=== PATIENT | male | born 1965 | race Caucasian/White ===

== ENCOUNTER 2017-02-11 15:24 | Inpatient (IN) ==
[2017-02-11] MEDS ORDERED: *HR* LORazepam Oral Conc 2 MG/ML PO PRN (15:29)
[2017-02-11] MEDS ORDERED: Haloperidol Oral Conc 10 MG/5 ML UDC PO PRN (15:29)
[2017-02-11] MEDS ORDERED: *HR* FentaNYL PATCH 12 MCG PATCH TD SCH (15:30)
[2017-02-11] MEDS ORDERED: 0.9 % Sodium Chloride 1,000 ML IVC ONE (15:37)
[2017-02-11] MEDS ORDERED: *HR* LORazepam 2 MG/ML VIAL IVP PRN (15:41)
[2017-02-11] MEDS ORDERED: *HR* Morphine 2 MG/ML SYRINGE IVP PRN (15:44)
[2017-02-11] MEDS ORDERED: Morphine Oral CONC 5 MG/0.25 ML ORAL.SYG PO PRN (15:45)
[2017-02-11] MEDS ORDERED: Ondansetron 4 MG/2 ML VIAL IVP PRN (15:54)
--- NOTE | 2017-02-11 16:16 | Pallative History & Physical ---
Date of Encounter: 02/11/17 Time of Encounter: 17:01 Assessment and Plan (1) Abdominal pain Current visit: No Status: Acute We will start IV medications using morphine every hour as needed threshold for switching either to allotted or increasing the dose. IV drip may be also necessary. SPECT anxiety to be some aspect of this as well. Ativan is written for. Of note the patient is not showing any signs of impaction. Rectal exam does not reveal any stool in the vault. Qualifiers: Abdominal location: generalized Qualified Code(s): R10.84 - Generalized abdominal pain (2) Goals of care, counseling/discussion Current visit: No Status: Acute DO NOT RESUSCITATE comfort care, the patient is coming in for general inpatient hospice care adequate relief of nausea vomiting and abdominal pain. Plan for IV fluids, IV medications diet as tolerated and IV a medication as well. We will try a fentanyl patch for long-lasting medication, however the patient is cachectic and may not be able to much from the patch. We will give it a try however. Ultimate goal. Return home with hospice. (3) Intractable nausea and vomiting Current visit: No Status: Acute Scheduled Reglan with Benadryl as well as Decadron. As needed Zofran is also available. She should be able to tolerate the Reglan well, as the patient does not show any signs of obstruction there are not high pitched her active bowel sounds, and the rectal exam is negative for any stool at the rectal vault. Qualifiers: Vomiting type: unspecified Qualified Code(s): R11.2 - Nausea with vomiting , unspecified Internal Medicine - H&P: HPI Admitted From: Direct Admit Plans for Post Hospital Care: Hospice - Home History of present illness: Mr. 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 Adding increasing nausea and vomiting and abdominal pain. Has a history of cachexia has had been having difficulty with nausea and vomiting for Averell days now worse today. He is now unable to keep down his pain meds and is having increasing abdominal pain. Milo pain is diffuse of the abdomen with eating better with not deep achy pain that he rates as a 7-8/10. Past Med Surg Social Fam HX - Past Medical History Medical history: cancer, GERD, other Psychiatric history: no psych history - Social History Smoking Status: Former smoker Smokeless Tobacco Status: No Alcohol use: none Drug use: none - Family History Mother Living Status: Still Living Hx Family Cardiac Disorders: No Hx Family Respiratory Disorders: No Hx Family Cancer: No Hx Family GI Disorders: No Hx Family Endocrine Disorder: No Hx Family Neuromuscular Disorders: No Hx Family Neurologic Disorders: No Hx Family HEENT Disorders: No Hx Family Autoimmune Disorders: No Father Living Status: Still Living Hx Family Cardiac Disorders: Yes (heart attack 5 weeks ago) Hx Family Respiratory Disorders: No Hx Family Cancer: No Hx Family GI Disorders: No Hx Family Endocrine Disorder: No Hx Family Neuromuscular Disorders: No Hx Family Neurologic Disorders: No Hx Family HEENT Disorders: No Hx Family Autoimmune Disorders: No Internal Medicine - H&P: Meds DiphenhydraMINE [Benadryl] 25 mg PO PRN PRN #30 capsule 09/15/16 [Rx] Omeprazole [PriLOSEC] 20 mg PO DAILY #90 capsule 09/15/16 [Rx] Capecitabine [Xeloda] 500 mg PO BID 09/22/16 [History] Haloperidol Oral Conc [Haldol] 2 mg PO Q4H PRN #10 mls 09/29/16 [Rx] LORazepam Oral Conc [Ativan Oral Conc] 1 mg PO Q6HR PRN #10 mls 09/29/16 [Rx] LORazepam [Ativan] 1 mg PO Q6H PRN #10 tablet 09/29/16 [Rx] Morphine Oral CONC [Roxanol] 15 mg PO Q1H PRN #15 oral.syg 09/29/16 [Rx] OxyCODONE Immed Rel [Roxicodone 15 MG] 15 mg PO Q2HR PRN #20 tablet 09/29/16 [Rx ] Polyethylene Glycol 3350 [MiraLAX] 17 gm PO DAILY #5 powd.pack 09/29/16 [Rx] Prochlorperazine Maleate [Compazine] 10 mg PO Q6HR #20 tablet 09/29/16 [Rx] Scopolamine Patch [Transderm-Scop] 1.5 mg TD Q72H #2 patch.td72 09/29/16 [Rx] Amitriptyline [Elavil] 50 mg PO HS #30 tablet 11/03/16 [Rx] Magic Mouthwash 10 ml PO TID #260 ml 11/12/16 [Rx] Omeprazole [PriLOSEC] 20 mg PO DAILY #30 capsule 11/12/16 [Rx] Morphine Sulfate SR (12 HR) [MS Contin] 15 mg PO Q8H #90 tablet.er 11/20/16 [Rx] Docusate Sodium [Colace] 100 mg PO BID #60 capsule 11/21/16 [Rx] LORazepam [Ativan] 1 mg PO Q6H PRN #90 tablet 11/21/16 [Rx] Ondansetron [Zofran] 8 mg PO Q8HR PRN #90 tablet 11/21/16 [Rx] Megestrol Acetate [Megace] 10 ml PO DAILY #300 mls 12/11/16 [Rx] Allergies No Known Allergies Allergy (Verified 12/11/16 15:38) - Constitutional Constitutional ROS PAL: decreased appetite, anorexia, malaise, weight loss - EENT Eyes: no discharge, no pain Ears: no ear discharge, no ear pain Ears, nose, mouth, throat: no facial pain, no hoarseness, no lip swelling, no mouth pain - Cardiovascular Cardiovascular ROS: no chest pain, no chest pain at rest, no chest pain with activity - Respiratory Respiratory: no cough, no dyspnea, no hemoptysis, no dyspnea on exertion - Gastrointestinal Gastrointestinal: abdominal pain, constipation, nausea, vomiting - Genitourinary Genitourinary ROS male: no urinary frequency, no urinary hesitancy, no urinary incontinence - Musculoskeletal Musculoskeletal ROS IM: no back pain, no joint swelling - Integumentary ROS Integumentary: no skin pain, no skin ulcer - Neurological Neurological ROS: no confusion, no convulsions, no disequilibrium, no headache(s ), no lack of coordination - Psychiatric Psychiatric general PM: no anxiety, no depression, no homicidal ideation, no suicidal ideation - Endocrine Endocrine IM: other (No thyroid or diabetes problems.) Palliative Care-Exam - Constitutional General appearance: Present: no acute distress - Head Head Exam: Present: atraumatic, normal inspection - Eye Eye exam: Present: normal appearance - ENT ENT exam: Present: mucous membranes dry (Slightly) - Respiratory Respiratory exam: Present: CTAB - Cardiovascular Cardiovascular exam: Present: RRR - GI/Abdominal Exam GI/Abdominal exam: Present: diminished bowel sounds, soft, tenderness (Diffuse) - Rectal Rectal Exam: Present: normal inspection, normal rectal tone. Absent: decreased rectal tone, fecal impaction - Extremities Exam Extremities exam: Present: normal inspection. Absent: pedal edema, tenderness - Neurological Exam Neurological exam: Present: alert, oriented X3 - Psychiatric Psychiatric exam: Absent: agitated, anxious - Skin Skin exam: Present: dry, warm Palliative Quality Palliative Quality: Screen for Code Status: Yes, Screen for Goals of Care: Yes, Screen for Pain: Yes, If Pain Regimen Started, Initiate Bowel Regimen: Yes, Screen for Nausea/Vomitting: Yes Code Status: 02/11/17 15:29 Resuscitation Status: Active [RES] Stat Comment: Resuscitation Status: DNR-Comfort Care
[2017-02-11 17:43] VITALS: BP 119/81
[2017-02-11] MEDS ORDERED: *HR* FentaNYL PATCH 25 MCG PATCH TD SCH (18:00)
[2017-02-11] MEDS: Metoclopramide 10 MG/2 ML VIAL IVP SCH (18:48)
[2017-02-11] MEDS: Dexamethasone 10 MG/ML VIAL IVP SCH ×2 (18:48→22:13)
[2017-02-11] MEDS ORDERED: Bisacodyl 10 MG RECTAL SUPPOSITORY RC SCH (21:00)
[2017-02-11] MEDS: 0.9 % Sodium Chloride 1,000 ML IVC SCH (22:14)
[2017-02-12] MEDS: Metoclopramide 10 MG/2 ML VIAL IVP SCH ×3 (00:36→12:16)
[2017-02-12] MEDS: 0.9 % Sodium Chloride 1,000 ML IVC SCH (05:19)
--- NOTE | 2017-02-12 09:18 | Palliative - Consult Note ---
Date of Encounter: 02/12/17 Time of Encounter: 08:45 - Assessment and Plan (1) Nausea and vomiting Current Visit: No Status: Resolved Assessment and plan: Patient denies nausea or vomiting at present. No nausea or vomiting for past 12 hrs. Patient receiving IV hydration, Reglan and scheduled Zofran IV. Will advance diet to as tolerated and monitor. Continue current regimen and monitor tolerance to diet. Qualifiers: Vomiting type: unspecified Vomiting Intractability: intractable Qualified Code(s): R11.2 - Nausea with vomiting, unspecified (2) Abdominal pain Current Visit: No Status: Acute Assessment and plan: Patient receiving Fentanyl patch 25mcg and had one dose BTP medication. Denies pain at present. Will transition to po medication as per home regimen once patient tolerates fluids and food. Qualifiers: Abdominal location: generalized Qualified Code(s): R10.84 - Generalized abdominal pain (3) Goals of care, counseling/discussion Current Visit: Yes Status: Acute Assessment and plan: Patient desires to go home. I explained that we will start PO foods and liquids and monitor ability to tolerate. Patient verbalized understanding and is eating cereal at present. Patient has existing A-port that is not patent and he is enrolled in [facility]. He will return home. (4) Metastasis from esophageal cancer Current Visit: No Status: Chronic Palliative-CN HPI - Data of Consult Patient: known to practice within the last 3 years Consult date: 02/12/17 Requesting Physician: Khris Maguire MD Primary Care Provider: Bob Kign Jr, MD - Consult Narrative Palliative Care/Comfort Measures: Palliative care Reason for consult: Symptom management History of present illness: Mr. Lowry is a 51 year old male admitted from home with intractable nausea and vomiting that has resulted in his inability to take his pain medication. The patient is currently enrolled in [facility] for esophageal cancer with metastases to his liver. The patient was admitted for hydration and IV medications for comfort and control of his nausea and vomiting. The patient is alert and oriented at the time of consult. This palliative care consult s for symptom management. CC: Khris Maguire MD Past Med Surg Social Fam HX - Past Medical History Attestation: Yes The following information was validated with the patient. Source: patient, old records reviewed Medical history: cancer, GERD, liver disease (met cancer), other Psychiatric history: no psych history - Past Surgical History Surgical History: no surgical history - Social History Smoking Status: Former smoker Smokeless Tobacco Status: No Alcohol use: none Drug use: none Occupational status: unemployed Current living situation: Home - Independent Recent Out of Country Travel Within the Last 8 Weeks: No Exposure or Possible Exposure to Illness During Travel: No - Family History Mother Living Status: Still Living Hx Family Cardiac Disorders: No Hx Family Respiratory Disorders: No Hx Family Cancer: No Hx Family GI Disorders: No Hx Family Endocrine Disorder: No Hx Family Neuromuscular Disorders: No Hx Family Neurologic Disorders: No Hx Family HEENT Disorders: No Hx Family Autoimmune Disorders: No Father Living Status: Still Living Hx Family Cardiac Disorders: Yes (August 2016) Hx Family Respiratory Disorders: No Hx Family Cancer: No Hx Family GI Disorders: No Hx Family Endocrine Disorder: No Hx Family Neuromuscular Disorders: No Hx Family Neurologic Disorders: No Hx Family HEENT Disorders: No Hx Family Autoimmune Disorders: No Medications and Allergies DiphenhydraMINE [Benadryl] 25 mg PO PRN PRN #30 capsule 09/15/16 [Rx] Omeprazole [PriLOSEC] 20 mg PO DAILY #90 capsule 09/15/16 [Rx] Capecitabine [Xeloda] 500 mg PO BID 09/22/16 [History] Haloperidol Oral Conc [Haldol] 2 mg PO Q4H PRN #10 mls 09/29/16 [Rx] OxyCODONE Immed Rel [Roxicodone 15 MG] 15 mg PO Q2HR PRN #20 tablet 09/29/16 [Rx ] Scopolamine Patch [Transderm-Scop] 1.5 mg TD Q72H #2 patch.td72 09/29/16 [Rx] Amitriptyline [Elavil] 50 mg PO HS #30 tablet 11/03/16 [Rx] Magic Mouthwash 10 ml PO TID #260 ml 11/12/16 [Rx] Docusate Sodium [Colace] 100 mg PO BID #60 capsule 11/21/16 [Rx] Ondansetron [Zofran] 8 mg PO Q8HR PRN #90 tablet 11/21/16 [Rx] Megestrol Acetate [Megace] 10 ml PO DAILY #300 mls 12/11/16 [Rx] Acetaminophen [Tylenol 650mg SUPP] 650 mg RC Q6H PRN 02/11/17 [History] Hyoscyamine SL [Levsin SL] 0.125 mg SL Q4H PRN 02/11/17 [History] LORazepam Oral Conc [Ativan Oral Conc] 1 mg PO Q4H PRN 02/11/17 [History] LORazepam [Ativan] 1 mg PO Q4H PRN 02/11/17 [History] Lactulose 10 - 20 gm PO DAILY PRN 02/11/17 [History] Loperamide [Imodium] 2 mg PO Q4H PRN MDD 16 mg 02/11/17 [History] Morphine Oral CONC [Roxanol] 20 mg PO Q1H PRN 02/11/17 [History] Morphine Sulfate SR (12 HR) [MS Contin] 30 mg PO Q6H 02/11/17 [History] Oxygen 2 - 4 l NS AD 02/11/17 [History] Polyethylene Glycol 3350 [MiraLAX] 17 gm PO DAILY PRN 02/11/17 [History] Prochlorperazine Maleate [Compazine] 10 mg PO Q6HR PRN 02/11/17 [History] Sennosides/Docusate Sodium [Senna Plus] 1 - 8 each PO DAILY PRN 02/11/17 [ History] Allergies No Known Allergies Allergy (Verified 12/11/16 15:38) All systems: reviewed and no additional remarkable complaints except as stated ( weakness, nausea and vomiting and abdominal pain) - Constitutional Constitutional ROS PAL: decreased appetite, fatigue - EENT Ears, nose, mouth, throat: dry mouth - Gastrointestinal Gastrointestinal: abdominal pain, nausea, vomiting - Musculoskeletal Musculoskeletal ROS IM: muscle weakness - Neurological Neurological ROS: weakness Palliative Care-Exam - Constitutional Vitals: Temp Pulse Resp BP Pulse Ox 97.7 F 96 14 119/81 97 02/11/17 17:42 02/11/17 17:42 02/11/17 17:42 02/11/17 17:42 02/11/17 18:15 General appearance: Present: cooperative, no acute distress - Head Head Exam: Present: atraumatic, normal inspection, normocephalic - Eye Eye exam: Present: PERRL Pupils: Present: PERRL - ENT ENT exam: Present: mucous membranes dry - Neck Neck exam: Present: full ROM - Respiratory Respiratory exam: Present: CTAB - Expanded Respiratory Exam Location: decreased breath sounds: Left, Right, Lower - Cardiovascular Cardiovascular exam: Present: RRR, +S1, +S2 - Expanded Cardiovascular Exam Peripheral pulses: 1+: Femoral (L) PM, Femoral (R) PM, Posterior Tibialis (L), Posterior Tibialis (R), 2+: Carotid (L) PM, Carotid (R) PM, Radial (L), Radial ( R), Dorsalis Pedis (L) PM, Dorsalis Pedis (R) PM - GI/Abdominal Exam GI/Abdominal exam: Present: diminished bowel sounds, soft (slight tenderness to palpation) - Rectal Rectal Exam: Present: normal inspection - External exam: Present: normal external exam (voids per urinal) - Expanded Upper Extremities Exam Shoulder exam: Present: full ROM Upper Arm exam: Present: full ROM Forearm wrist exam: Present: full ROM - Expanded Lower Extremities Exam Upper Leg exam: Present: full ROM Lower Leg exam: Present: full ROM - Back Exam Back exam: Present: full ROM - Neurological Exam Neurological exam: Present: alert, CN II-XII intact, oriented X3 - Psychiatric Psychiatric exam: Present: normal affect - Skin Skin exam: Present: pallor, warm Consult Discharge Plan - Plan Referrals: Bob King Jr, MD [Primary Care Provider] - (Web requested 02/11/17) Palliative Quality Palliative Quality: Screen for Code Status: Yes, Screen for Goals of Care: Yes, Screen for Pain: Yes, If Pain Regimen Started, Initiate Bowel Regimen: Yes, Screen for Nausea/Vomitting: Yes Code Status: 02/11/17 15:29 Resuscitation Status: Active [RES] Stat Comment: Resuscitation Status: DNR-Comfort Care
[2017-02-12] MEDS: Dexamethasone 10 MG/ML VIAL IVP SCH ×2 (10:30→12:33)
[2017-02-12] MEDS ORDERED: *HR* LORazepam 1 MG TABLET PO PRN (10:31)
[2017-02-12] MEDS ORDERED: 0.9 % Sodium Chloride 1,000 ML IVC SCH (10:35)
[2017-02-12] MEDS ORDERED: *HR* Morphine Sulfate SR (12 HR) 30 MG TABLET.ER PO SCH (12:00)
--- NOTE | 2017-02-12 13:36 | Discharge Summary ---
Date of Encounter: 02/12/17 Time of Encounter: 13:15 - Discharge Diagnosis (1) Nausea and vomiting Priority: Primary Status: Acute Comments: Patient without nausea or vomiting. Tolerating food well. Qualifiers: Vomiting type: unspecified Vomiting Intractability: intractable Qualified Code(s): R11.2 - Nausea with vomiting, unspecified (2) Abdominal pain Priority: Primary Status: Acute Comments: Resolved. MS Contin started per home dosing. Qualifiers: Abdominal location: generalized Qualified Code(s): R10.84 - Generalized abdominal pain (3) Goals of care, counseling/discussion Priority: Secondary Status: Acute Comments: Patient to return home with hospice care (4) Metastasis from esophageal cancer Priority: Secondary Status: Chronic Comments: Patient enrolled in hospice - Discharge Medications Home Medications: Scopolamine Patch [Transderm-Scop] 1.5 mg TD Q72H #2 patch.td72 09/29/16 [Rx] Magic Mouthwash 10 ml PO TID #260 ml 11/12/16 [Rx] Lactulose 10 - 20 gm PO DAILY PRN 02/11/17 [History] Loperamide [Imodium] 2 mg PO Q4H PRN MDD 16 mg 02/11/17 [History] Morphine Oral CONC [Roxanol] 20 mg PO Q1H PRN 02/11/17 [History] Oxygen 2 - 4 l NS AD 02/11/17 [History] Polyethylene Glycol 3350 [MiraLAX] 17 gm PO DAILY PRN 02/11/17 [History] Prochlorperazine Maleate [Compazine] 10 mg PO Q6HR PRN 02/11/17 [History] Sennosides/Docusate Sodium [Senna Plus] 1 - 8 each PO DAILY PRN 02/11/17 [ History] Amitriptyline [Elavil] 50 mg PO HS tablet 02/12/17 [Rx] Bisacodyl [Dulcolax] 10 mg RC HS supp.rect 02/12/17 [Rx] Docusate [Colace] 100 mg PO BID capsule 02/12/17 [Rx] Haloperidol Oral Conc [Haldol] 1 mg PO Q4H PRN #0 udc 02/12/17 [Rx] LORazepam Oral Conc [Ativan Oral Conc] 1 mg PO Q4HR PRN #0 mls 02/12/17 [Rx] LORazepam [Ativan] 1 mg PO Q4HR PRN #0 tablet 02/12/17 [Rx] Morphine Sulfate SR (12 HR) [MS Contin] 30 mg PO Q6HR tablet.er 02/12/17 [Rx] Omeprazole [PriLOSEC] 20 mg PO DAILY@0630 capsule. 02/12/17 [Rx] Allergies/Adverse Reactions: Allergies No Known Allergies Allergy (Verified 12/11/16 15:38) Procedures and tests throughout hospitalization: NO procedures were ordered Internal Medicine - DS: Prov Date of admission: 02/11/17 16:33 Primary care physician: Bob King Jr, MD Admitting clinician: Khris Maguire Attending physician on admission: Khris Maguire Consults: 02/11/17 15:30 Consult to Palliative Care [CONS] Routine Comment: Consulting Provider: [facility] [place] Reason for Consult: gip Call Completed: Yes 02/11/17 18:19 Consult to Pastoral Services [CONS] Routine Comment: Attending physician on discharge: Khris Maguire Discharging clinician: Khris Maguire Anticipated date of discharge: 02/12/17 - Patient Status Disposition: Home, Self-Care Condition: Good Functional capacity at discharge: independent ambulation Overall status at discharge: patient is back to baseline - Discharge Instructions Follow Up With: Bob King Jr, MD [Primary Care Provider] - (Web requested 02/11/17 Patient is Respite..) - Diet and Activity Activity: resume usual activities as tolerated Diet: advance to your usual diet - Hospital Course Hospital course: Mr. Lowry is a 51 year old male admitted with intractable nausea and vomiting and abdominal pain. Patient is currently enrolled in [facility] at home. Patient has esophageal cancer with mets to liver. Patient received IV fluids and scheduled Reglan, Zofran and Benadryl for nausea. Patient had no nausea or vomiting for 16 hrs and diet has been advanced to as tolerated. He tolerated both lunch and dinner well. Patient will be DC'd home in the care of his mother. Hospice services have been resumed. Time spent discussing smoking cessation with patient: more than 10 minutes - Time Spent with Patient Total time spent providing and/or coordinating discharge services: Less than 30 minutes Specific discharge activities: Resume home Hospice medications as per admission and list reviewed with patient. Internal Medicine - DS: Exam - Constitutional Vitals: Vital Signs Temp Pulse Resp BP Pulse Ox 02/11/17 18:15 97 02/11/17 17:42 97.7 F 96 14 119/81 97 Intake and Output 02/11/17 02/12/17 02/12/17 23:59 07:59 15:59 Intake Total 0 / 0 1000 / 1000 240 / 240 Output Total 300 / 300 0 / 0 Balance -300 / -300 1000 / 1000 240 / 240 Intake: IV Fluids 1000 / 1000 0.9 % Sodium Chloride 1, 1000 / 1000 000 ML @ 125 mls/hr IVC . Q8H [facility] Rx#:[id number] Oral 0 / 0 240 / 240 Output: Urine 300 / 300 0 / 0 Other: Meal Breakfast Percent of Meal Consumed 0% Weight 52.3 kg - Head Head exam: Present: atraumatic, normal inspection, normocephalic - Eye Eye exam: Present: PERRL Pupils: Present: PERRL - ENT ENT exam: Present: mucous membranes moist - Neck Neck exam: Present: full ROM - Respiratory Respiratory exam: Present: CTAB - Cardiovascular Cardiovascular exam: Present: RRR, +S1, +S2 - GI/Abdominal GI/Abdominal exam: Present: normal bowel sounds, soft - Rectal Rectal exam: Present: deferred - Extremities Exam Extremities exam: Present: full ROM - Back Exam Back exam: Present: full ROM - Neurological Exam Neurological exam: Present: alert, oriented X3 - Psychiatric Psychiatric exam: Present: normal mood - Skin Skin exam: Present: pallor, warm - Stroke Reason for No Antithrombin at DC: Medical contraindication Reason for No Anticoagulant at DC: Medical contraindication Contraindication Not Initiating IV-Tpa: Medical contraindication
== END 2017-02-12 15:02 | disposition home or self-care (01) | DRG 375 ==
LOC: 2ANU 16:33
PROVIDERS: ADMIT Family Medicine Hospice and Palliative Medicine; ATTEND Family Medicine Hospice and Palliative Medicine